=== PATIENT | female | born 1975 | race Caucasian/White ===

== ENCOUNTER 2024-04-14 21:31 | Emergency (ER) | payer MEDICAID | END 2024-04-14 23:08 | disposition home or self-care (01) | LOC: JD.ED 21:31 | DX: S82.141A Displaced bicondylar fracture of right tibia, initial encounter for closed fracture (principal); Z88.2 Allergy status to sulfonamides; Z88.5 Allergy status to narcotic agent; Z79.899 Other long term (current) drug therapy; W01.198A Fall on same level from slipping, tripping and stumbling with subsequent striking against other object, initial encounter | CPT/HCPCS: 73562-26-RT; 73562-RT; 99283 ==